=== PATIENT | male | born 1990 ===

== ENCOUNTER 2017-01-22 06:30 | Emergency (ER) | payer BC ==
--- NOTE | 2017-01-22 07:56 | DIAGNOSTIC IMAGING REPORT ---
PROCEDURE: XR HAND 3 OR 4 VIEWS - LEFT INDICATION: TRAUMA/INJURY TECHNIQUE: Four views. COMPARISON: None. FINDINGS: Osseous structures, joint spaces, and soft tissues are normal. No fracture, dislocation or suspicious osseous lesion. Normal joint spaces. Mild soft tissue swelling over the dorsum of the hand. IMPRESSION: 1. Mild soft tissue swelling over the dorsum of the right hand.
--- NOTE | 2017-01-22 08:09 | ED ORDER SUMMARY ---
..... Patient: BROWN OLVERA OrderSheet [facility] VisitID: [id number] [place] [address] 26y, M Registration Date/Time: 01/22/2017 ORDER SHEET Weight: 68.0 kg (stated) Allergies: Penicillins GENERAL ORDERS: Blood Culture (No) (N/A) Urgent (06:45 01/22/2017 Neymar Cameron) (Ack 6:48 IJurca ER Tech1) (7:26 KWilliams R.N.) Hand 3 or 4V Left Urgent (06:45 01/22/2017 Neymar Cameron) (Ack 6:48 IJurca ER Tech1) (7:26 KWilliams R.N.) CBC w Diff Urgent (06:46 01/22/2017 Neymar Cameron) (Ack 6:48 IJurca ER Tech1) (7:26 KWilliams R.N.) CMP Urgent (06:46 01/22/2017 Neymar Cameron) (Ack 6:48 IJurca ER Tech1) (7:26 KWilliams R.N.) Urine Drug Screen Urgent (06:46 01/22/2017 Neymar Cameron) (Ack 6:48 IJurca ER Tech1) (8:10 KWilliams R.N.) Lactic Acid for Sepsis Protocol Urgent (06:46 01/22/2017 Neymar Cameron) (Ack 6:48 IJurca ER Tech1) (7:26 KWilliams R.N.) PCT (Procalcitonin) Urgent (06:46 01/22/2017 Neymar Cameron) (Ack 6:48 IJurca ER Tech1) (7:26 KWilliams R.N.) CRP Urgent (08:01/22/2017 Neymar Cameron) (Ack 8:13 LTapper) (8:30 KWilliams R.N.) Sed Rate Urgent (08:01/22/2017 Neymar Cameron) (Ack 8:13 LTapper) (8:30 KWilliams R.N.) NPO (08:01/22/2017 Neymar Cameron) (8:13 Susu ValdesNRemy) MEDICATION ORDERS: Ouusvil-Gjpmkb-Unliy Pertussis IM 0.5 mL (NOW, per protocol) (07:56 01/22/2017 Neymar Cameron) (8:32 Susu Perez) IV FLUIDS: IV NS : initial bolus none -, then 1000 mL/hr for X1 (NOW) (06:44 01/22/2017 Neymar Cameron) (7:06 HSoule) Vancomycin IV 1 gm/200mL (NOW) (08:10 01/22/2017 Neymar Cameron) (8:30 Susu Ramirez.NRemy) Levofloxacin IV 750 mg/150 mL (NOW) (08:11 01/22/2017 Neymar Cameron) (Cancelled: Patient Left9:56 Susu R.N.) ORDER SHEET NOTES: [Electronically signed by Jesus Ashley Dr. (08:41 01/22/2017)] [Electronically signed by Liliana Estrada R.N. (09:57 01/22/2017)] [Electronically locked/signed by Liliana Estrada R.N. (09:57 01/22/2017)]
--- NOTE | 2017-01-22 08:09 | ED ORDER SUMMARY ---
..... Patient: BROWN OLVERA OrderSheet [facility] VisitID: [id number] [place] [address] 26y, M Registration Date/Time: 01/22/2017 ORDER SHEET Weight: 68.0 kg (stated) Allergies: Penicillins GENERAL ORDERS: Blood Culture (No) (N/A) Urgent (06:45 01/22/2017 Neymar Cameron) (Ack 6:48 IJurca ER Tech1) (7:26 KWilliams R.N.) Hand 3 or 4V Left Urgent (06:45 01/22/2017 Neymar Cameron) (Ack 6:48 IJurca ER Tech1) (7:26 KWilliams R.N.) CBC w Diff Urgent (06:46 01/22/2017 Neymar Cameron) (Ack 6:48 IJurca ER Tech1) (7:26 KWilliams R.N.) CMP Urgent (06:46 01/22/2017 Neymar Cameron) (Ack 6:48 IJurca ER Tech1) (7:26 KWilliams R.N.) Urine Drug Screen Urgent (06:46 01/22/2017 Neymar Cameron) (Ack 6:48 IJurca ER Tech1) (8:10 KWilliams R.N.) Lactic Acid for Sepsis Protocol Urgent (06:46 01/22/2017 Neymar Cameron) (Ack 6:48 IJurca ER Tech1) (7:26 KWilliams R.N.) PCT (Procalcitonin) Urgent (06:46 01/22/2017 Neymar Cameron) (Ack 6:48 IJurca ER Tech1) (7:26 KWilliams R.N.) CRP Urgent (08:01/22/2017 Neymar Cameron) (Ack 8:13 LTapper) (8:30 KWilliams R.N.) Sed Rate Urgent (08:01/22/2017 Neymar Cameron) (Ack 8:13 LTapper) (8:30 KWilliams R.N.) NPO (08:01/22/2017 Neymar Cameron) (8:13 Susu ValdesNRemy) MEDICATION ORDERS: Ypprylh-Dbwnuf-Itkvq Pertussis IM 0.5 mL (NOW, per protocol) (07:56 01/22/2017 Neymar Cameron) (8:32 Susu Perez) IV FLUIDS: IV NS : initial bolus none -, then 1000 mL/hr for X1 (NOW) (06:44 01/22/2017 Neymar Cameron) (7:06 HSoule) Vancomycin IV 1 gm/200mL (NOW) (08:10 01/22/2017 Neymar Cameron) (8:30 Susu Ramirez.NRemy) Levofloxacin IV 750 mg/150 mL (NOW) (08:11 01/22/2017 Neymar Cameron) (Cancelled: Patient Left9:56 Susu R.N.) ORDER SHEET NOTES: [Electronically signed by Jesus Ashley Dr. (08:41 01/22/2017)] [Electronically signed by Liliana Estrada R.N. (09:57 01/22/2017)] [Electronically locked/signed by Liliana Estrada R.N. (09:57 01/22/2017)]
--- NOTE | 2017-01-22 08:09 | ED CLINICAL REPORT ---
Clinical Report - Physicians/Mid Levels [facility] [address] [place] [address] 01/22/2017 6:29 Patient: BROWN OLVERA Time Seen: 06:38; initial patient contact. Arrived- In handcuffs. Police present. Came in police custody. Historian- patient. HISTORY OF PRESENT ILLNESS Chief Complaint: Injury to the left hand. The injury happened several days ago. Occurred at home. The patient sustained a puncture wound from a needle. (IVDA). Patient is experiencing moderate pain that has recently become worse. Patient denies injury to the head or neck. REVIEW OF SYSTEMS The patient sustained a laceration. He has had swelling. No tingling, numbness, weakness, nausea or vomiting. He has had fever, chills and skin lesion. All systems otherwise negative, except as recorded above. PAST HISTORY Substance abuse. Tetanus immunization status is unknown. Additional Surgeries: no known surgeries. Medications: None. Allergies: Penicillins. SOCIAL HISTORY Current every day smoker. History of IV drug use: heroin, methamphetamines. No alcohol use. ADDITIONAL NOTES The nursing notes have been reviewed with agreement regarding the chief complaint, PMH and patient medications and allergies. PHYSICAL EXAM Vital Signs: 01/22/2017 06:31 BP: 126/77. HR: 108. RR: 20. O2 saturation: 100%. Temp: 99.1 F. Pain level now: 7/10. Have been reviewed. Blood pressure normal. Tachycardic. Respiratory rate normal. Temperature normal. Oxygen saturation normal. Appearance: Alert. Oriented X3. Appears to be in pain. Head: Head atraumatic. Eyes: Eyes normal inspection. ENT: Dry mucous membranes present. CVS: Tachycardia. Heart sounds normal. Rhythm normal. Respiratory: No respiratory distress. Breath sounds normal. Skin: (Multiple skin lesions and tract [place]). Extremities: Left palm: moderate tenderness (over 3rd flexor tendon). Left middle finger: moderate erythema, tenderness and swelling and multiple puncture wounds; limited movement (diminished flexion and extension) (Held in mild flexion). No wrist injury. Neuro, Vascular and Tendons: Vascular status intact. Sensation intact. Motor intact. Neuro: Oriented X 3. No motor deficit. LABS, X-RAYS, AND EKG Lt Hand X-ray: No fracture. Normal alignment. No bony lesion, air in the soft tissue or foreign body. Soft tissues normal. Joint spaces normal. Views: AP, lateral and oblique. Technique: good. The X-rays were independently viewed by me and interpreted contemporaneously by me. Prior films were not available for comparison. Interpretation time: 07:57. Laboratory Tests: ESR: (YVES: 01/22/2017 07:00) ( [facility] 01/22/2017 08:38) Final results Test Result Flag Units (Reference) SED RATE WESTERGREN 43 H mm/hr (0-15) CBC w Diff: (YVES: 01/22/2017 07:00) ( [facility] 01/22/2017 07:32) Final results Test Result Flag Units (Reference) WHITE BLOOD COUNT 14.9 H K/uL (4.5-11.5) RED BLOOD COUNT 4.08 L M/uL (4.50-5.90) HEMOGLOBIN 12.1 L gm/dL (13.5-17.5) HEMATOCRIT 35.8 L % (41.0-53.0) MEAN CELL VOLUME 88 fL (80-100) MEAN CORPUSCULAR HGB 30 pg (26-34) MEAN CORPUSCULAR HGB CONC 34 g/dL (31-37) RED CELL DISTRIBUTION WIDTH 13.2 % (11.6-14.8) PLATELET COUNT 509 H K/uL (150-400) NEUTROPHIL % 72.1 % (50-75) LYMPH % 15.1 L % (25-40) MONO % 11.9 % (3-14) EOSINOPHIL % 0.6 % (0-4) BASOPHIL % 0.3 % (0-2) [id number]: (YVES: 01/22/2017 07:00) ( [facility] 01/22/2017 08:33) Final results Test Result Flag Units (Reference) C-REACTIVE PROTEIN 10.0 H mg/dL (0.0-0.9) Lactate, Serum: (YVES: 01/22/2017 07:00) ( [facility] [place] 07:51[place] Final results Test Result Flag Units (Reference) LACTIC ACID 1.0 mmol/L (0.4-2.0) Urine Drug Screen: (YVES: 01/22/2017 08:00) ( [facility] 01/22/2017 08:33) Final results Test Result Flag Units (Reference) AMPHETAMINE/METHAMPHETAMINE POSITIVE H (NEGATIVE) BARBITURATE NEGATIVE (NEGATIVE) BENZODIAZEPINE NEGATIVE (NEGATIVE) CANNABINOID NEGATIVE (NEGATIVE) COCAINE NEGATIVE (NEGATIVE) ECSTASY NEGATIVE (NEGATIVE) METHADONE NEGATIVE (NEGATIVE) OPIATE POSITIVE H (NEGATIVE) The urine drug screen is a qualitative screening test fordrug overdose and abuse. All screen results should beconsidered as presumptive.Drugs screened for are as follows:BenzodiazepinesCocaineAmphetamines/MetamphetaminesTHC (Tetrahydrocannabinol)OpiatesBarbituratesEcstasyMethadonePositive results are unconfirmed. For confirmation, notifythe lab for the specimen to be sent to the reference lab.All confirmations must be performed by a differentmethodology.The ingestion of natural herbal and plant productscontaining Ephedra/Ephedra metabolites can produce in urineone or more substances capable of cross reacting withamphetamine/methamphetamine immunoassays. These testsprovide a preliminary result only. A more specificalternative chemical method must be used to obtain aconfirmed analytical result. [id number]: (YVES: 01/22/2017 07:00) ( MsgRcvd 01/22/2017 08:37) Final results Test Result Flag Units (Reference) PROCALCITONIN <0.5 ng/mL (0-0.5) PCT Concentration: Interpretation : Risk/option for action PCT <=0.5 ng/mL : Systemic : Low risk forinfection(sepsis): progression to severeis not likely. : systemic infection.Local bacterial : CAUTION-PCT levelsinfection is : below 0.5 ng/mL do notpossible. : exclude an infection,because localizedinfections (withoutsystemic signs) may beassociated with suchlow levels. If PCT ismeasured very earlyafter a bacterialchallenge (usually <6hours), these valuesmay still be low. Inthis case PCT shouldbe re-assessed 6-24hours later. PCT >0.5 and : Systemic infection: Moderate risk for<= 2 ng/mL : (sepsis) is : progression to severepossible, but : systemic infection.other conditions : The patient should beare known to : closely monitoredelevate PCT. : both clinically andby re-assessing PCTwithin 6-24 hours. PCT > 2 ng/mL : Systemic infection: High risk for(sepsis) is likely: progression to severeunless other : systemic infection.causes are known. : PCT >= 10 ng/mL : Important systemic: High likelihood ofinflammatory : severe sepsis orresponse, almost : septic shock.exclusively due to:severe bacterial :sepsis or septic :shock. : CMP: (YVES: 01/22/2017 07:00) ( MsgRcvd 01/22/2017 07:48) Final results Test Result Flag Units (Reference) GLUCOSE 126 H mg/dL (70-110) BUN 20 H mg/dL (7-18) CREATININE 0.7 mg/dL (0.6-1.3) Estimated GFR >60 mL/min Estimated GFR- >60 mL/min Note: Persistent reduction over 3 months in eGFR<60 mL/min/1.73 m2 defines CKD. Patients with eGFR values>=60 mL/min/1.73 m2 may also have CKD if evidence ofpersistent proteinuria. Additional information may be foundat www.kidney.org. SODIUM 133 L mmol/L (136-145) POTASSIUM 4.6 mmol/L (3.5-5.1) CHLORIDE 100 mmol/L (98-107) CARBON DIOXIDE 29 mmol/L (21-32) CALCIUM 8.8 mg/dL (8.5-10.1) TOTAL PROTEIN 7.4 g/dL (6.4-8.2) ALBUMIN 2.9 L g/dL (3.3-5.0) BILIRUBIN, TOTAL 0.4 mg/dL (0.0-1.0) ALKALINE PHOSPHATASE 89 U/L (46-116) AST (SGOT) 138 H U/L (15-37) ALT (SGPT) 323 H U/L (12-78) . PROGRESS AND PROCEDURES Discussed case with on-call health care provider, (call returned 08:08 Dr. Beebe. Will admit, will see in ED.). Disposition: Admitted to Acute Care. Admit decision based on need for IV antibiotics and surgery. CLINICAL IMPRESSION Infectious tenosynovitis left hand. Mild leukocytosis. INSTRUCTIONS Follow-up: Screening today revealed the patient's blood pressure to be in the pre-hypertensive range. The patient was admitted and blood pressure will be managed during the admission. (Electronically signed by Jesus Ashley Dr. 01/22/2017 8:41)
--- NOTE | 2017-01-22 08:09 | ED CLINICAL REPORT ---
Clinical Report - Physicians/Mid Levels [facility] [address] [place] [address] 01/22/2017 6:29 Patient: BROWN OLVERA Time Seen: 06:38; initial patient contact. Arrived- In handcuffs. Police present. Came in police custody. Historian- patient. HISTORY OF PRESENT ILLNESS Chief Complaint: Injury to the left hand. The injury happened several days ago. Occurred at home. The patient sustained a puncture wound from a needle. (IVDA). Patient is experiencing moderate pain that has recently become worse. Patient denies injury to the head or neck. REVIEW OF SYSTEMS The patient sustained a laceration. He has had swelling. No tingling, numbness, weakness, nausea or vomiting. He has had fever, chills and skin lesion. All systems otherwise negative, except as recorded above. PAST HISTORY Substance abuse. Tetanus immunization status is unknown. Additional Surgeries: no known surgeries. Medications: None. Allergies: Penicillins. SOCIAL HISTORY Current every day smoker. History of IV drug use: heroin, methamphetamines. No alcohol use. ADDITIONAL NOTES The nursing notes have been reviewed with agreement regarding the chief complaint, PMH and patient medications and allergies. PHYSICAL EXAM Vital Signs: 01/22/2017 06:31 BP: 126/77. HR: 108. RR: 20. O2 saturation: 100%. Temp: 99.1 F. Pain level now: 7/10. Have been reviewed. Blood pressure normal. Tachycardic. Respiratory rate normal. Temperature normal. Oxygen saturation normal. Appearance: Alert. Oriented X3. Appears to be in pain. Head: Head atraumatic. Eyes: Eyes normal inspection. ENT: Dry mucous membranes present. CVS: Tachycardia. Heart sounds normal. Rhythm normal. Respiratory: No respiratory distress. Breath sounds normal. Skin: (Multiple skin lesions and tract [place]). Extremities: Left palm: moderate tenderness (over 3rd flexor tendon). Left middle finger: moderate erythema, tenderness and swelling and multiple puncture wounds; limited movement (diminished flexion and extension) (Held in mild flexion). No wrist injury. Neuro, Vascular and Tendons: Vascular status intact. Sensation intact. Motor intact. Neuro: Oriented X 3. No motor deficit. LABS, X-RAYS, AND EKG Lt Hand X-ray: No fracture. Normal alignment. No bony lesion, air in the soft tissue or foreign body. Soft tissues normal. Joint spaces normal. Views: AP, lateral and oblique. Technique: good. The X-rays were independently viewed by me and interpreted contemporaneously by me. Prior films were not available for comparison. Interpretation time: 07:57. Laboratory Tests: ESR: (YVES: 01/22/2017 07:00) ( [facility] 01/22/2017 08:38) Final results Test Result Flag Units (Reference) SED RATE WESTERGREN 43 H mm/hr (0-15) CBC w Diff: (YVES: 01/22/2017 07:00) ( [facility] 01/22/2017 07:32) Final results Test Result Flag Units (Reference) WHITE BLOOD COUNT 14.9 H K/uL (4.5-11.5) RED BLOOD COUNT 4.08 L M/uL (4.50-5.90) HEMOGLOBIN 12.1 L gm/dL (13.5-17.5) HEMATOCRIT 35.8 L % (41.0-53.0) MEAN CELL VOLUME 88 fL (80-100) MEAN CORPUSCULAR HGB 30 pg (26-34) MEAN CORPUSCULAR HGB CONC 34 g/dL (31-37) RED CELL DISTRIBUTION WIDTH 13.2 % (11.6-14.8) PLATELET COUNT 509 H K/uL (150-400) NEUTROPHIL % 72.1 % (50-75) LYMPH % 15.1 L % (25-40) MONO % 11.9 % (3-14) EOSINOPHIL % 0.6 % (0-4) BASOPHIL % 0.3 % (0-2) [id number]: (YVES: 01/22/2017 07:00) ( [facility] 01/22/2017 08:33) Final results Test Result Flag Units (Reference) C-REACTIVE PROTEIN 10.0 H mg/dL (0.0-0.9) Lactate, Serum: (YVES: 01/22/2017 07:00) ( [facility] [place] 07:[place]) Final results Test Result Flag Units (Reference) LACTIC ACID 1.0 mmol/L (0.4-2.0) Urine Drug Screen: (YVES: 01/22/2017 08:00) ( [facility] 01/22/2017 08:33) Final results Test Result Flag Units (Reference) AMPHETAMINE/METHAMPHETAMINE POSITIVE H (NEGATIVE) BARBITURATE NEGATIVE (NEGATIVE) BENZODIAZEPINE NEGATIVE (NEGATIVE) CANNABINOID NEGATIVE (NEGATIVE) COCAINE NEGATIVE (NEGATIVE) ECSTASY NEGATIVE (NEGATIVE) METHADONE NEGATIVE (NEGATIVE) OPIATE POSITIVE H (NEGATIVE) The urine drug screen is a qualitative screening test fordrug overdose and abuse. All screen results should beconsidered as presumptive.Drugs screened for are as follows:BenzodiazepinesCocaineAmphetamines/MetamphetaminesTHC (Tetrahydrocannabinol)OpiatesBarbituratesEcstasyMethadonePositive results are unconfirmed. For confirmation, notifythe lab for the specimen to be sent to the reference lab.All confirmations must be performed by a differentmethodology.The ingestion of natural herbal and plant productscontaining Ephedra/Ephedra metabolites can produce in urineone or more substances capable of cross reacting withamphetamine/methamphetamine immunoassays. These testsprovide a preliminary result only. A more specificalternative chemical method must be used to obtain aconfirmed analytical result. [id number]: (YVES: 01/22/2017 07:00) ( MsgRcvd 01/22/2017 08:37) Final results Test Result Flag Units (Reference) PROCALCITONIN <0.5 ng/mL (0-0.5) PCT Concentration: Interpretation : Risk/option for action PCT <=0.5 ng/mL : Systemic : Low risk forinfection(sepsis): progression to severeis not likely. : systemic infection.Local bacterial : CAUTION-PCT levelsinfection is : below 0.5 ng/mL do notpossible. : exclude an infection,because localizedinfections (withoutsystemic signs) may beassociated with suchlow levels. If PCT ismeasured very earlyafter a bacterialchallenge (usually <6hours), these valuesmay still be low. Inthis case PCT shouldbe re-assessed 6-24hours later. PCT >0.5 and : Systemic infection: Moderate risk for<= 2 ng/mL : (sepsis) is : progression to severepossible, but : systemic infection.other conditions : The patient should beare known to : closely monitoredelevate PCT. : both clinically andby re-assessing PCTwithin 6-24 hours. PCT > 2 ng/mL : Systemic infection: High risk for(sepsis) is likely: progression to severeunless other : systemic infection.causes are known. : PCT >= 10 ng/mL : Important systemic: High likelihood ofinflammatory : severe sepsis orresponse, almost : septic shock.exclusively due to:severe bacterial :sepsis or septic :shock. : CMP: (YVES: 01/22/2017 07:00) ( MsgRcvd 01/22/2017 07:48) Final results Test Result Flag Units (Reference) GLUCOSE 126 H mg/dL (70-110) BUN 20 H mg/dL (7-18) CREATININE 0.7 mg/dL (0.6-1.3) Estimated GFR >60 mL/min Estimated GFR- >60 mL/min Note: Persistent reduction over 3 months in eGFR<60 mL/min/1.73 m2 defines CKD. Patients with eGFR values>=60 mL/min/1.73 m2 may also have CKD if evidence ofpersistent proteinuria. Additional information may be foundat www.kidney.org. SODIUM 133 L mmol/L (136-145) POTASSIUM 4.6 mmol/L (3.5-5.1) CHLORIDE 100 mmol/L (98-107) CARBON DIOXIDE 29 mmol/L (21-32) CALCIUM 8.8 mg/dL (8.5-10.1) TOTAL PROTEIN 7.4 g/dL (6.4-8.2) ALBUMIN 2.9 L g/dL (3.3-5.0) BILIRUBIN, TOTAL 0.4 mg/dL (0.0-1.0) ALKALINE PHOSPHATASE 89 U/L (46-116) AST (SGOT) 138 H U/L (15-37) ALT (SGPT) 323 H U/L (12-78) . PROGRESS AND PROCEDURES Discussed case with on-call health care provider, (call returned 08:08 Dr. Beebe. Will admit, will see in ED.). Disposition: Admitted to Acute Care. Admit decision based on need for IV antibiotics and surgery. CLINICAL IMPRESSION Infectious tenosynovitis left hand. Mild leukocytosis. INSTRUCTIONS Follow-up: Screening today revealed the patient's blood pressure to be in the pre-hypertensive range. The patient was admitted and blood pressure will be managed during the admission. (Electronically signed by Jesus Ashley Dr. 01/22/2017 8:41)
--- NOTE | 2017-01-22 08:09 | ED NURSING NOTES ---
Clinical Report - Nurses [facility] [address] [place] [address] 01/22/2017 6:29 Patient: BROWN OLVERA TRIAGE Triage time 06:Jan 22 2017. Acuity: LEVEL 3. Chief Complaint: (Clear to book, left hand pain). SEPSIS SCREEN: Sepsis Screen: negative. Negative (no infection suspected/documented). Heart rate greater than 90. ABHIJIT COMA SCORE: [place] Coma Scale: 15- eyes open spontaneously (4); best verbal response- oriented x 4 (5); best motor response- obeys commands (6). --06:34 Junie Vazquez 06:31 01/22/17. BP: 126/77. HR: 108. RR: 20. O2 saturation: 100% on room air. Temp: 99.1 F (oral). Pain level now: 05/23. --06:34 Junie Vazquez ( Patient complaining of left axilla pain). --06:36 Junie Vazquez Acuity: LEVEL 3. --07:31 Liliana Estrada R.N. Weight: 68 kg stated. Height/Length: 70 inches Per Patient. BMI: 21.5. --06:36 Junie Vazquez. Medications None. --06:34 Junie Vazquez. Medication/allergy information source: the patient. --06:34 Junie Vazquez. Allergies Penicillins. --06:34 Junie Vazquez. History Historian: patient. Arrived in police custody and accompanied by police. This started today. ( Patient reports left hand pain and states he thinks it may be broken.). SOCIAL HX: Heavy tobacco smoker- less than 1 pack per day. History of drug use: heroin, methamphetamines. No alcohol use. No infectious disease exposure. ABUSE ASSESSMENT: No report of abuse. FALL RISK ASSESSMENT: Fall risk assessment completed. No fall risk identified. NUTRITIONAL RISK ASSESSMENT: The nutritional risk assessment revealed no deficiencies. FUNCTIONAL ASSESSMENT: Functional assessment: no impairments noted. LEARNING NEEDS ASSESSMENT: The learning needs assessment revealed no barriers. SKIN INTEGRITY ASSESSMENT: Skin integrity risk assessment completed. No skin integrity risk identified. --06:34 Junie Vazquez PAST MEDICAL HX: Immunizations: status is unknown. --06:35 Junie Vazquez. PROBLEMS: Substance Abuse. --06:34 Junie Vazquez. ADDITIONAL SURGERIES: no known surgeries. Interventions ID band on patient. To treatment room. --06:34 Junie Vazquez. PHYSICAL ASSESSMENT GENERAL / NEURO / PSYCH: Alert. Appears in no acute distress. Decreased awareness (opens eyes to voice and drowsy). HEENT: No facial asymmetry noted. Mucous membranes are pink. RESPIRATORY: Respirations not labored. CVS: Cardiac rhythm: sinus tachycardia; (108). SKIN: Skin is dry. ( Sores generalized over patients body, some swelling, redness and sores over left hand). --06:36 Junie Vazquez. NURSING PROGRESS NOTES Reassurance given to the patient. Two patient identifiers checked. Call light placed in reach. Side rails up x 1. Bed placed in lowest position. Brakes of bed on. Patient ready for evaluation- chart flagged and ED physician notified. ( navigation officer at bedside). --06:36 Junie Vazquez 06:56 01/22/2017 Site #1 started via IV in the right upper arm with an 20g angiocath, with aseptic technique and good blood return; one attempt. Blood drawn: rainbow set and cultures x1. Labeled in the presence of the patient and sent to the lab. Saline lock flushed with 10 mL saline. --07:06 Junie Vazquez 06:57 01/22/17. Care transferred and report received (ERVIN Zaman). --06:57 Liliana Estrada R.N. 07:06 01/22/2017 Started bag #1 1000 mL IV Fluids IV NS (Saline); at 1000 mL/hr over 1 hour(s) via site #1 via IV pump. Allergies verified and confirmed 5 rights. IV patency established. IV site checked: no pain, redness, or swelling. IV flushed thoroughly pre- and post-medication administration. --07:06 Junie Vazquez Patient ID band checked for patient name and birthdate: patient confirmed. Instructions provided to collect clean catch urine and patient verbalized understanding. Clean catch urine collected with return of yellow-colored cloudy urine; sample sent to lab for urinalysis, culture and drug screen. Specimen labeled in the presence of the patient. --08:11 Liliana Estrada R.N. 08:10 01/22/2017 IV Fluids IV NS Bag Change: bag #1 infused. Total amount infused: 1000. STARTED bag #2 (1000 mL) at 21 mL/hr via IV pump. Confirmed 5 rights. IV patency established. IV site checked: no pain, redness, or swelling. IV flushed thoroughly. --09:56 Liliana Estrada R.N. 08:25 01/22/2017 Started 1.25 gm of Vancomycin IVPB in bag #1 250 mL; at 275 mL/hr over 1 hour(s) via site #1 via IV pump. Allergies verified and confirmed 5 rights. IV patency established. IV site checked: no pain, redness, or swelling. IV flushed thoroughly pre- and post-medication administration. Completed per protocol (Dose changed to 1250mg per pharmacist (Vivek) for loading dose. Dr Ashley notified of dose change.). --08:30 Liliana Estrada R.N. 08:32 01/22/2017 [id number] PERTUSSIS IM 0.5 mL given. (Lot#: [id number], expiration date: 08/21/2018). Given in the left deltoid. Allergies verified and confirmed 5 rights. Vaccine information statement provided to the patient. --08:32 Liliana Estrada R.N. 09:25 01/22/2017 Vancomycin IVPB Discontinued: bag #1 infused. Total amount infused: 275 mL. IV patency established. IV site checked: no pain, redness, or swelling. IV flushed thoroughly. --09:57 Liliana Estrada R.N. DISPOSITION / DISCHARGE 09:33. Departure time: 932. The patient left the Emergency Department against medical advice; patient was unaccompanied. The patient appears to be oriented x4 and in no acute distress. He stated is leaving the ED (leaving AMA. States he will be going to a hotel in [place] to see his dad). Notified the ED physician of patient departure. Prior to leaving the ED, he was advised to stay for completion of treatment and return if needed. He was informed of the risks of leaving and verbalized understanding of these risks. Patient signed form prior to leaving. He left the Emergency Department ambulatory. ( Extensive education provided on risks of leaving without surgery and antibiotics. Dr Ashley and Dr Beebe discussed risks with patient.). --09:52 Liliana Estrada R.N. 09:30 01/22/2017 Site #1 removed. Bandage applied. --09:52 Liliana Estrada R.N. Locked/Released at 01/22/2017 9:57 by Liliana Estrada R.N.
--- NOTE | 2017-01-22 08:09 | ED NURSING NOTES ---
Clinical Report - Nurses [facility] [address] [place] [address] 01/22/2017 6:29 Patient: BROWN OLVERA TRIAGE Triage time 06:Jan 22 2017. Acuity: LEVEL 3. Chief Complaint: (Clear to book, left hand pain). SEPSIS SCREEN: Sepsis Screen: negative. Negative (no infection suspected/documented). Heart rate greater than 90. ABHIJIT COMA SCORE: [place] Coma Scale: 15- eyes open spontaneously (4); best verbal response- oriented x 4 (5); best motor response- obeys commands (6). --06:34 Junie Vazquez 06:31 01/22/17. BP: 126/77. HR: 108. RR: 20. O2 saturation: 100% on room air. Temp: 99.1 F (oral). Pain level now: 05/23. --06:34 Junie Vazquez ( Patient complaining of left axilla pain). --06:36 Junie Vazquez Acuity: LEVEL 3. --07:31 Liliana Estrada R.N. Weight: 68 kg stated. Height/Length: 70 inches Per Patient. BMI: 21.5. --06:36 Junie Vazquez. Medications None. --06:34 Junie Vazquez. Medication/allergy information source: the patient. --06:34 Junie Vazquez. Allergies Penicillins. --06:34 Junie Vazquez. History Historian: patient. Arrived in police custody and accompanied by police. This started today. ( Patient reports left hand pain and states he thinks it may be broken.). SOCIAL HX: Heavy tobacco smoker- less than 1 pack per day. History of drug use: heroin, methamphetamines. No alcohol use. No infectious disease exposure. ABUSE ASSESSMENT: No report of abuse. FALL RISK ASSESSMENT: Fall risk assessment completed. No fall risk identified. NUTRITIONAL RISK ASSESSMENT: The nutritional risk assessment revealed no deficiencies. FUNCTIONAL ASSESSMENT: Functional assessment: no impairments noted. LEARNING NEEDS ASSESSMENT: The learning needs assessment revealed no barriers. SKIN INTEGRITY ASSESSMENT: Skin integrity risk assessment completed. No skin integrity risk identified. --06:34 Junie Vazquez PAST MEDICAL HX: Immunizations: status is unknown. --06:35 Junie Vazquez. PROBLEMS: Substance Abuse. --06:34 uJnie Vazquez. ADDITIONAL SURGERIES: no known surgeries. Interventions ID band on patient. To treatment room. --06:34 Junie Vazquez. PHYSICAL ASSESSMENT GENERAL / NEURO / PSYCH: Alert. Appears in no acute distress. Decreased awareness (opens eyes to voice and drowsy). HEENT: No facial asymmetry noted. Mucous membranes are pink. RESPIRATORY: Respirations not labored. CVS: Cardiac rhythm: sinus tachycardia; (108). SKIN: Skin is dry. ( Sores generalized over patients body, some swelling, redness and sores over left hand). --06:36 Junie Vazquez. NURSING PROGRESS NOTES Reassurance given to the patient. Two patient identifiers checked. Call light placed in reach. Side rails up x 1. Bed placed in lowest position. Brakes of bed on. Patient ready for evaluation- chart flagged and ED physician notified. ( evp chief exploration officer at bedside). --06:36 Junie Vazquez 06:56 01/22/2017 Site #1 started via IV in the right upper arm with an 20g angiocath, with aseptic technique and good blood return; one attempt. Blood drawn: rainbow set and cultures x1. Labeled in the presence of the patient and sent to the lab. Saline lock flushed with 10 mL saline. --07:06 Junie Vazquez 06:57 01/22/17. Care transferred and report received (ERVIN Zaman). --06:57 Liliana Estrada R.N. 07:06 01/22/2017 Started bag #1 1000 mL IV Fluids IV NS (Saline); at 1000 mL/hr over 1 hour(s) via site #1 via IV pump. Allergies verified and confirmed 5 rights. IV patency established. IV site checked: no pain, redness, or swelling. IV flushed thoroughly pre- and post-medication administration. --07:06 Junie Vazquez Patient ID band checked for patient name and birthdate: patient confirmed. Instructions provided to collect clean catch urine and patient verbalized understanding. Clean catch urine collected with return of yellow-colored cloudy urine; sample sent to lab for urinalysis, culture and drug screen. Specimen labeled in the presence of the patient. --08:11 Liliana Estrada R.N. 08:10 01/22/2017 IV Fluids IV NS Bag Change: bag #1 infused. Total amount infused: 1000. STARTED bag #2 (1000 mL) at 21 mL/hr via IV pump. Confirmed 5 rights. IV patency established. IV site checked: no pain, redness, or swelling. IV flushed thoroughly. --09:56 Liliana Estrada R.N. 08:25 01/22/2017 Started 1.25 gm of Vancomycin IVPB in bag #1 250 mL; at 275 mL/hr over 1 hour(s) via site #1 via IV pump. Allergies verified and confirmed 5 rights. IV patency established. IV site checked: no pain, redness, or swelling. IV flushed thoroughly pre- and post-medication administration. Completed per protocol (Dose changed to 1250mg per pharmacist (Vivek) for loading dose. Dr Ashley notified of dose change.). --08:30 Liliana Estrada R.N. 08:32 01/22/2017 [id number]-[id number]-ATRKI PERTUSSIS IM 0.5 mL given. (Lot#: [id number], expiration date: 08/21/2018). Given in the left deltoid. Allergies verified and confirmed 5 rights. Vaccine information statement provided to the patient. --08:32 Liliana Estrada R.N. 09:25 01/22/2017 Vancomycin IVPB Discontinued: bag #1 infused. Total amount infused: 275 mL. IV patency established. IV site checked: no pain, redness, or swelling. IV flushed thoroughly. --09:57 Liliana Estrada R.N. DISPOSITION / DISCHARGE 09:33. Departure time: 932. The patient left the Emergency Department against medical advice; patient was unaccompanied. The patient appears to be oriented x4 and in no acute distress. He stated is leaving the ED (leaving AMA. States he will be going to a hotel in [place] to see his dad). Notified the ED physician of patient departure. Prior to leaving the ED, he was advised to stay for completion of treatment and return if needed. He was informed of the risks of leaving and verbalized understanding of these risks. Patient signed form prior to leaving. He left the Emergency Department ambulatory. ( Extensive education provided on risks of leaving without surgery and antibiotics. Dr Ashley and Dr Beebe discussed risks with patient.). --09:52 Liliana Estrada R.N. 09:30 01/22/2017 Site #1 removed. Bandage applied. --09:52 Liliana Estrada R.N. Locked/Released at 01/22/2017 9:57 by Liliana Estrada R.N.
--- NOTE | 2017-01-22 09:14 | Progress Note ---
Subjective General Mina has a Hx of illicit drug use and now has a flexor tenosynovitis involving the LLF. He has been counseled in the clearest possible terms that he needs to have surgery and IP IV antibiotic therapy to try and save the hand. He has declined to sign the consent for surgery and says he wants to leave now. I have tried my best to convince him to stay, but he has absolutely refused.
--- NOTE | 2017-01-22 09:50 | CONSULTATION REPORT ---
DATE OF CONSULTATION: 01/22/2017 CONSULT AND HISTORY AND PHYSICAL CHIEF COMPLAINT: 1. Left hand pain HISTORY OF PRESENT ILLNESS: The patient has been self injecting himself, looks like he has probably been skin popping, has multiple sites on both hands where it looks like he has been injecting himself and now developed swelling and pain, very limited range of motion in the left long finger and was brought here to the emergency room. His white count is elevated at 14.9 thousand, he is slightly anemic at 12.1 grams hemoglobin. His sedimentation rate was reported verbally to be 43 and CRP of 10. He has a positive urine drug screen for both opiates and amphetamines. MEDICAL/SURGICAL HISTORY: Past history he says is negative for any other serious medical illness. He has had some work done on his teeth previously, but no other surgeries and he denies heart, lung, kidney, stomach disease, hepatitis, AIDS, cancer, tumor, tuberculosis, peptic ulcer disease, diabetes. MEDICATIONS: He said he is on no other medications other than heroin, although clearly he has been taking amphetamines. ALLERGIES: 1. HE HAS NO KNOWN ALLERGIES. SOCIAL HISTORY: He does admit to being a smoker. FAMILY HISTORY: So far as he knows is negative and there are no familial illnesses. REVIEW OF SYSTEMS: He has not had any loss of consciousness, seizure disorder, chest pain or shortness of breath or problems with his breathing, he had no nausea, vomiting, diarrhea. No dysuria or hematuria. He has no other musculoskeletal complaints. PHYSICAL EXAMINATION: HEENT: His head is normocephalic and atraumatic. Eyes are clear. His hearing is grossly normal. He has no drainage from the ear canals. Mouth and posterior oropharynx is clear. He is missing a number of his teeth, both upper and lower. NECK: He has no jugular venous distention. CHEST: Symmetrical. HEART: Regular rate and rhythm although he does have some tachycardia. There are no murmurs that are heard. LUNGS: Clear to auscultation. ABDOMEN: Soft and flat. There are some bowel sounds but they are somewhat diminished. EXTREMITIES: In the left upper extremity. Again, there are multiple old puncture sites where he has injected himself in the skin of the hands and arms. His left long finger he first told me he had no sensation when I pinched him distally and then later said that he did. He clearly has marked tenderness over the flexor tendon sheath, particularly overlying the proximal phalanx and there is some fusiform 3+ edema of the finger. It is warm and pink. Capillary refilling is almost immediate distally. He does have limited flexion and extension of it, but passive extension is quite markedly painful. There are no open wounds there and is no drainage, but he clearly looks to have a flexor tenosynovitis of the hand. ASSESSMENT: 1. Drug abuse with flexor tenosynovitis, left long finger PLAN: For incision and drainage of the finger and explained to him the situation now. If he does not have his surgery and does not stay and get his antibiotics that there is a real possibility he could lose the finger or even the entire hand and that surgery should be done as soon as possible. I filled out the consent form. He refused to sign it and we called the OR crew, but he says he will not go to surgery, that he needs to go and find his father first. I am not sure that connection there or why that it and he could not explain it to me, but he said he would not have his surgery until he talked to his dad first so he is planning to leave [place]. Nothing I said convinced him otherwise. We did try to convince him that he should stay and again explained to him that the consequences of delay are that he might lose the finger or even the entire hand and that it would be in his best interest to stay and have the surgery done as soon as possible and continue receiving IV antibiotics, but he has declined and expressed his desire to leave at this time. So if he returns, we will take care of him if he returns.
--- NOTE | 2017-01-22 09:57 | ED MED RECONCILIATION SUMMARY ---
Patient: BROWN OLVERA Medication Reconciliation Report [facility] VisitID: [id number] [place] [address] 26y, M Registration Date/Time: 01/22/2017 Weight: 68.0 kg Height/Length: 70 in. BMI: 21.5 ALLERGIES: Penicillins The patient's Home Medications are listed below: NONE. The source(s) of the original Home Medication information: patient The following Medications were given to the patient in the Emergency Department: IV NS IV Fluids bolus 0, then 1000 mL/hr, administered: 01/22/2017 7:06:00 AM Vancomycin [IVPB] IVPB bolus 0, then 1.25 gm 275 mL/hr, administered: 01/22/2017 8:25:00 AM PTMEJKE-OQRPIK-WREBO PERTUSSIS [IM] IM 0.5 mL, administered: 01/22/2017 8:32:00 AM The following Medications were prescribed to the patient: None.
--- NOTE | 2017-01-22 09:57 | ED DISCHARGE INSTRUCTIONS ---
Patient: BROWN OLVERA General Instructions [facility] VisitID: [id number] [place] [address] 26y, M Registration Date/Time: 01/22/2017 Infectious tenosynovitis left hand. Mild leukocytosis. INSTRUCTIONS Follow-up: Screening today revealed the patient's blood pressure to be in the pre-hypertensive range. The patient was admitted and blood pressure will be managed during the admission. (Electronically signed by Jesus Ashley Dr. 01/22/2017 8:41)
--- NOTE | 2017-01-22 09:57 | ED MAR SUMMARY ---
..... Medication Administration Record [facility] [address] [place] [address] Patient: BROWN OLVERA Visit ID: [id number] 26y, M Weight: 68.0 kg Height/Length: 70 in BMI: 21.5 ALLERGIES: Penicillins Start 07:06 01/22/2017 Junie Vazquez, Medication Administered: IV NS (SALINE), Dose: IV Fluids over 1 hour(s), Rate: 1000 mL/hr, Dispensed: 1000 mL bag, Site: #1 right upper arm. Medication Ordered: IV NS : initial bolus none -, then 1000 mL/hr for X1 (NOW). Start 08:25 01/22/2017 Liliana Estrada R.N., Stop 09:25 01/22/2017 Liliana Estrada R.N. Medication Administered: VANCOMYCIN [IVPB], Dose: 1.25 gm IVPB over 1 hour(s), Rate: 275 mL/hr, Dispensed: 250 mL bag, Site: #1 right upper arm. Medication Ordered: Vancomycin IV 1 gm/200mL (NOW). Given 08:32 01/22/2017 Liliana Estrada R.N. Medication Administered: SMPHINL-DEMIKN-ZMQXI PERTUSSIS [IM], Dose: 0.5 mL IM. Medication Ordered: Zajuugb-Uluygc-Qmhvi Pertussis IM 0.5 mL (NOW, per protocol).
--- NOTE | 2017-01-22 09:57 | ED MAR SUMMARY ---
..... Medication Administration Record [facility] [address] [place] [address] Patient: BROWN OLVERA Visit ID: [id number] 26y, M Weight: 68.0 kg Height/Length: 70 in BMI: 21.5 ALLERGIES: Penicillins Start 07:06 01/22/2017 Junie Vazquez, Medication Administered: IV NS (SALINE), Dose: IV Fluids over 1 hour(s), Rate: 1000 mL/hr, Dispensed: 1000 mL bag, Site: #1 right upper arm. Medication Ordered: IV NS : initial bolus none -, then 1000 mL/hr for X1 (NOW). Start 08:25 01/22/2017 Liliana Estrada R.N., Stop 09:25 01/22/2017 Liliana Estrada R.N. Medication Administered: VANCOMYCIN [IVPB], Dose: 1.25 gm IVPB over 1 hour(s), Rate: 275 mL/hr, Dispensed: 250 mL bag, Site: #1 right upper arm. Medication Ordered: Vancomycin IV 1 gm/200mL (NOW). Given 08:32 01/22/2017 Liliana Estrada R.N. Medication Administered: IQTHOIK-VEIXKI-PJSYN PERTUSSIS [IM], Dose: 0.5 mL IM. Medication Ordered: Bzsxozv-Lzgiqh-Bnaar Pertussis IM 0.5 mL (NOW, per protocol).
--- NOTE | 2017-01-22 09:57 | ED DISCHARGE INSTRUCTIONS ---
Patient: BROWN OLVERA General Instructions [facility] VisitID: [id number] [place] [address] 26y, M Registration Date/Time: 01/22/2017 Infectious tenosynovitis left hand. Mild leukocytosis. INSTRUCTIONS Follow-up: Screening today revealed the patient's blood pressure to be in the pre-hypertensive range. The patient was admitted and blood pressure will be managed during the admission. (Electronically signed by Jesus Ashley Dr. 01/22/2017 8:41)
--- NOTE | 2017-01-22 09:57 | ED MED RECONCILIATION SUMMARY ---
Patient: BROWN OLVERA Medication Reconciliation Report [facility] VisitID: [id number] [place] [address] 26y, M Registration Date/Time: 01/22/2017 Weight: 68.0 kg Height/Length: 70 in. BMI: 21.5 ALLERGIES: Penicillins The patient's Home Medications are listed below: NONE. The source(s) of the original Home Medication information: patient The following Medications were given to the patient in the Emergency Department: IV NS IV Fluids bolus 0, then 1000 mL/hr, administered: 01/22/2017 7:06:00 AM Vancomycin [IVPB] IVPB bolus 0, then 1.25 gm 275 mL/hr, administered: 01/22/2017 8:25:00 AM SXDOPHL-GHIIAZ-VZKKV PERTUSSIS [IM] IM 0.5 mL, administered: 01/22/2017 8:32:00 AM The following Medications were prescribed to the patient: None.
== END 2017-01-22 09:33 | disposition left against medical advice (07) ==
LOC: ED SRH 06:30 → TRANS SRH 08:29 → ED SRH 08:29 → TRANS SRH 08:29 → ED SRH 09:33
DX: M65.842 Other synovitis and tenosynovitis, left hand (principal); D72.829 Elevated white blood cell count, unspecified; W46.0XXA Contact with hypodermic needle, initial encounter; Y99.9 Unspecified external cause status; Y92.009 Unspecified place in unspecified non-institutional (private) residence as the place of occurrence of the external cause; Z23 Encounter for immunization; Z88.0 Allergy status to penicillin